=== PATIENT | female | born 1990 | race Caucasian/White ===

== ENCOUNTER 2023-04-27 16:55 | Emergency (ER) | payer OTHER, SELFPAY ==
--- NOTE | 2023-04-27 17:05 | ECG_ITS ---
Measurements Intervals [place] Rate: 85 P: 52 TN: 156 QRS: -10 QRSD: 117 T: 25 QT: 369 QTc: 439 Interpretive Statements SINUS RHYTHM INCOMPLETE RIGHT BUNDLE BRANCH BLOCK BORDERLINE ECG NO PREVIOUS ECG AVAILABLE FOR COMPARISON Electronically Signed On 04-27-2023 18:42:35 CDT by Conner Clements D.O.
[2023-04-27 17:14] VITALS: BP 145/109; PULSE 99; RESP 14; TEMP 36.9; O2SAT 99
[2023-04-27 17:15] LABS: Glucose Point of Care 82 mg/dl (65-105)
[2023-04-27] MEDS: ONDANSETRON HCL ODT 4 MG TABLET PO (17:24)
[2023-04-27 17:25] LABS: Basophils Absolute Auto 0.03 K/mm3 (0.00-0.10); Basophils Percent Auto 0.3 % (0.0-1.0); Eosinophils Absolute Auto 0.22 K/mm3 (0.02-0.50); Eosinophils Percent Auto 2.5 % (1.0-6.0); Hematocrit 34.5 % (35.0-49.0); Hemoglobin 11.3 g/dL (12.0-15.0); Immature Granulocyte Absolute 0.03 K/mm3 (0.00-0.00); Immature Granulocyte Percent A 0.3 % (0.0-0.0); Lymphocytes Absolute Auto 3.89 K/mm3 (1.10-4.50); Lymphocytes Percent Auto 43.6 % (18.0-42.0); Mean Corpuscular HGB Conc 32.8 g/dL (32.0-36.0); Mean Corpuscular Hemoglobin 28.3 pg (27.0-31.0); Mean Corpuscular Volume 86.5 fL (78.0-102.0); Mean Platelet Volume 8.8 fl (9.2-11.8); Monocytes Absolute Auto 0.64 K/mm3 (0.10-0.90); Monocytes Percent Auto 7.2 % (2.0-11.0); Neutrophils Absolute Auto 4.1 K/mm3 (1.7-7.2); Neutrophils Percent Auto 46.1 % (50.0-70.0); Platelet Count Result 270 K/mm3 (150-420); Red Blood Count 3.99 M/mm3 (4.20-5.40); Red Cell Distribution Width 12.1 % (11.6-14.4); White Blood Count 8.9 K/mm3 (4.8-10.8)
[2023-04-27 17:39] LABS: Alanine Aminotransferase 22 U/L (14-59); Albumin Level 3.5 g/dL (3.4-5.0); Alkaline Phosphatase 46 U/L (46-116); Anion Gap 12 mmol/L (8-16); Aspartate Amino Transferase 14 U/L (15-37); Bilirubin,Total 0.1 mg/dL (0.00-1.00); Blood Urea Nitrogen 14 mg/dL (7-18); Calcium 9.1 mg/dL (8.5-10.1); Carbon Dioxide 25 mmol/L (21-32); Chloride 102 mmol/L (98-108); Estimated Glomerular Filt Rate > 60; Glucose 93 mg/dL (70-99); Osmolality Calculated 288 mOsm/kg (285-295); Potassium 3.4 mmol/L (3.5-5.1); Sodium 139 mmol/L (136-145); Total Protein 7.2 g/dL (6.4-8.2)
--- NOTE | 2023-04-27 17:48 | ED.DIZZY ---
HPI - Dizziness General Chief Complaint: Dizziness Stated Complaint: nausea; faint Time Seen by Provider: 04/27/23 17:04 Source: patient and family Mode of arrival: ambulatory Limitations: no limitations History of Present Illness HPI Narrative: this is a 32-year-old female with no significant past medical history presents with dizziness and a sensation that the room is spinning with nausea, with no fever chills no chest pain no abdominal pain no shortness of breath no flank pain no dysuria or hematuria. Patient states that she does have some sinus congestion for the last couple of days, with no diarrhea or constipation. MD elicited complaint: dizziness and lightheadedness Onset (ago): hour(s) Timing: sudden onset Severity: mild Description: sense of movement, room spinning and lightheadedness Related Data Allergies Allergy/AdvReac Type Severity Reaction Status Date / Time No Known Allergies Allergy Unverified 04/27/23 17:11 Review of Systems Review of Systems: All systems reviewed & are unremarkable except as noted in HPI and below PMFSH Past Medical History Medical History Patient denies medical problems Exam Const: General: healthy appearing Nutritional Appearance: well nourished Orientation/consciousness: patient oriented x3 Limitations: no limitations HENMT: Head: normal to inspection Other: bilateral ear dullness with some maxillary sinus tenderness with palpation Eyes: Pupils: Equal, round and reactive pupils present EOM: EOMs intact bilaterally Neck: Neck: normal visual inspection Chest: Chest palpation & inspection: normal inspection of the chest Resp: Effort & Inspection: normal respiratory effort Auscultation: clear to auscultation bilaterally Cardio: Rate: regular rate Rhythm: regular rhythm GI: GI Palp: Yes Soft to palpation Auscultation: normal bowel sounds : General: Yes bladder normal to palpation Back/Spine/Pelvis: Back: no CVA tenderness Skin: Rashes: no rashes Neuro: General: patient oriented x3, moves all extremities and no meningeal signs Extrem: General: normal to inspection Psych: Mental Status: mental status grossly normal Affect: normal affect Course Course Emergency Course: patient had EKG performed which shows that she has an incomplete right bundle branch block, labs performed showed that she has a potassium level of 3.4. Potassium level being decreased will administer a dose of oral potassium here in the emergency department. Advised patient to tack picker prescriptions for potassium, and follow up with primary care physician to evaluate the incomplete right bundle branch block. Patient with sinus congestion for the last couple of days afebrile advised Claritin and Flonase [id number]. Vital Signs Vital signs: Vital Signs Temperature 36.9 C 04/27/23 17:14 Pulse Rate 99 04/27/23 17:14 Respiratory Rate 14 04/27/23 17:14 Blood Pressure 145/109 H 04/27/23 17:14 Pulse Oximetry 99 04/27/23 17:14 Oxygen Delivery Room Air 04/27/23 17:14 Temperature 36.9 C 04/27/23 17:14 Pulse Rate 99 04/27/23 17:14 Respiratory Rate 14 04/27/23 17:14 Blood Pressure 145/109 H 04/27/23 17:14 Pulse Oximetry 99 04/27/23 17:14 Oxygen Delivery Room Air 04/27/23 17:14 MDM - Dizziness Lab Data 04/27/23 17:20 04/27/23 17:20 Labs: Lab Results 04/27/23 04/27/23 Range/Units 17:11 17:20 WBC 8.9 (4.8-10.8) K/mm3 RBC 3.99 L (4.20-5.40) M/mm3 Hgb 11.3 L (12.0-15.0) g/dL Hct 34.5 L (35.0-49.0) % MCV 86.5 (78.0-102.0) fL MCH 28.3 (27.0-31.0) pg MCHC 32.8 (32.0-36.0) g/dL RDW 12.1 (11.6-14.4) % Plt Count 270 (150-420) K/mm3 MPV 8.8 L (9.2-11.8) fl Immature Gran % (Auto) 0.3 H (0.0-0.0) % Neut % (Auto) 46.1 L (50.0-70.0) % Lymph % (Auto) 43.6 H (18.0-42.0) % [place] % (Auto) 7.2 (2.0-11
[2023-04-27] MEDS: POTASSIUM BICARBONATE 25 MEQ TABEF 50 MEQ PO (17:50)
[2023-04-27 18:05] VITALS: BP 129/90; PULSE 87; RESP 12; TEMP 36.9; O2SAT 99
== END 2023-04-27 18:08 | disposition home or self-care (01) ==
PROVIDERS: Emergency Provider Emergency Medicine
DX: R42 Dizziness and giddiness (principal); I45.10 Unspecified right bundle-branch block; E87.6 Hypokalemia
CPT/HCPCS: 36415; 80053; 82948; 85025; 93005; 99283; A9270

== ENCOUNTER 2024-06-03 07:00 | Outpatient (NON) | payer OTHER, SELFPAY | END 2024-06-03 07:01 | disposition home or self-care (01) | LOC: ANHLAB 06-04 09:38 | PROVIDERS: Visit Provider Surgery Plastic and Reconstructive Surgery | DX: T85.43XA Leakage of breast prosthesis and implant, initial encounter (principal) | CPT/HCPCS: 88304 ==

== ENCOUNTER 2024-06-03 08:17 | Day surgery (SDC) | payer OTHER, SELFPAY ==
[2024-05-15 10:00] VITALS: BMI 28.3
[2024-06-03] VITALS (8 sets, daily range): BP systolic 113–149; BP diastolic 75–103; PULSE 83–108; RESP 12–18; TEMP 36.4–37.4; O2SAT 96–100; BMI 28.4
--- NOTE | 2024-06-03 08:35 | SUR.PREOP ---
FEMALE STAFF IN ROOM WHILE DR REES MARKED PT. MOTHER ALSO IN ROOM
--- NOTE | 2024-06-03 08:36 | SUR.PREOP ---
ERROR. ABOVE NOTE REGARDING MARKING PT DID NOT HAPPEN AT THIS TIME. CHARTED ON WRONG PT.
[2024-06-03] MEDS: LACTATED RINGERS 1,000 ML 30 ML IV CONT ×2 (09:55→12:23)
--- NOTE | 2024-06-03 10:24 | SUR.PREOP ---
FEMALE STAFF IN ROOM WHILE DR REES MARKED PT. PT'S SPOUSE IN ROOM ALSO
--- NOTE | 2024-06-03 10:39 | WPDHPUPDATE1 ---
History and Physical Update Update Date/Time: 06/03/24 10:39 History and Physical has been reviewed, including an updated exam of the patient. There are NO changes in the patient's condition. Risks, benefits, and alternatives have been discussed and questions answered. Patient agrees to proceed with procedure.
--- NOTE | 2024-06-03 10:41 | WPDANESEPPF ---
Anes - Initial Pre Proc Eval Procedure: Operation Date: 06/03/24 10:45 Proposed Procedures p Bilateral Breast Implant Exchange - Gurdeep De Leon MD Date/Time: 06/03/24 10:41 Surgeon: Gurdeep De Leon MD Pre Op Diagnosis: HX Breast Augmentation, LT Breast Implant Rupture Patient Data Age: 34 Gender: F Height: 1.47 m Weight: 61.7 kg Last Vital Signs Temp 37.4 C 06/03/24 09:40 Pulse 85 06/03/24 09:40 Resp 18 06/03/24 09:40 BP 149/103 H 06/03/24 09:40 Pulse Ox 100 06/03/24 09:40 O2 Del Method Room Air 06/03/24 09:40 Allergies Allergy/AdvReac Type Severity Reaction Status Date / Time cefazolin (From [facility]) Allergy Intermediate Hives Verified 06/03/24 09:38 Home Medications ?Medication ?Instructions ?Recorded ?Confirmed ?Type No Home Medications 05/15/24 05/15/24 History Patient hx anesthesia problems: none Family hx anesthesia problems: none Results Review: All pre-operative results and documents have been reviewed as part of the pre-operative evaluation. [facility] Past Medical History Medical History Patient denies medical problems Social History Social History Smoking status: Former smoker Tobacco type: cigarettes Second hand tobacco smoke exposure: Yes Alcohol intake: current Alcohol use details: 3 per month Substance use type: does not use Living arrangements: with family Spiritual care concerns: No Anes - Eval Final PreProcedure Day of Procedure 06/03/24 10:41 Patient weight: overweight Heart: regular rate and rhythm Lungs: clear to auscultation Airway: Mallampati scale class II Neurological: alert and oriented Last oral intake: >/= 8 hours ASA classification: II Emergent: no Anesthetic plan: proceed Anesthesia type and monitoring: general LMA and standard monitoring Results Review: All pre-operative results and documents have been reviewed as part of the pre-operative evaluation. Informed Consent: The patient's anesthetic plan and its attendant risks and benefits were discussed with the patient/family/POA. Questions were solicited and answers provided to the satisfaction of the patient/family/POA.
[2024-06-03] MEDS: SCOPOLAMINE 1 MG PATCH 1.5 PATCH TRANSDERM (10:45)
[2024-06-03] MEDS: CLINDAMYCIN 900 MG/NS 50 ML 900 MG/50 ML PIGGYBACK 50 MG IVPB (11:14)
[2024-06-03] MEDS: LIDOCAINE 1% LOCAL INJ 10 ML VIAL 30 ML INFILTRATE (11:20)
[2024-06-03] MEDS: NACL 0.9% IRRIG POUR BOTTLE 900 ML, GENTAMICIN SULFATE INJ 160 MG, CLINDAMYCIN PHOS INJ... IRRIGATION (12:00)
--- NOTE | 2024-06-03 12:08 | W.PM.PROC2 ---
Procedure Note - Detailed Date of Procedure 06/03/24 Pre-op Diagnosis HX Breast Augmentation, LT Breast Implant Rupture Post-op Diagnosis Same Procedure Performed Bilateral breast implant exchange Surgeon Gurdeep De Leon MD Anesthesia General Indications Suspected left rupture and bilateral textured implants patient has decided to proceed with bilateral implant exchange. Current implant information unavailable. Findings Previous implants: Right breast implant [place] 400cc intact Left breast implant [place] 350cc grossly ruptured Replacement implants: Jarad Pelayo SoftTouch Right: REF# [id number] SN [id number] Left: REF# [id number] SN [id number] No worrisome features Description of Procedure Preoperatively the risks, benefits, alternatives were discussed in extensive detail. I wanted to be very realistic about the risks involved as well as expectations. I was clear about how we could actually make her worse. We do not have her current implant information available and she understands it's unlikely she will be exactly the same size. Answered all questions to satisfaction. Voiced a clear understanding. Consent obtained. She was taken the operating room placed supine on the operating room table. Anesthesia provided by anesthesiology and prepped and draped in a standard sterile fashion. Surgical time-out was taken. 1% lidocaine and 0.25% Marcaine with epinephrine was used to provide a field block. Tegaderm nipple subramanian were placed. Fifteen blade used to excise the previous IMF scars. Dissection was continued down until the capsules were identified and excised a significant portion of the capsule which was sent to pathology. Implants removed (findings as above). Changed gloves. I then copiously irrigated with 3 L of saline solution on TUR tubing. Verified strict hemostasis. Changed gloves. I then irrigated with Betadine containing solution. Based on preoperative estimates of implant size we did not have an exact match available. Implants utilized as above. Using a no-touch technique and a [place] funnel the implant was introduced into the pocket. This was closed with 2-0 PDS followed by 3-0 Monocryl and a running subcuticular 4-0 Monocryl followed by tissue glue. Dressings were placed. She was woken taken to the PACU without difficulty. All instrument sponge counts were correct at the end of the case. Estimated Blood Loss 20 Drains No Packing No Pathology Yes (Bilateral capsules) Complications No immediate complications Condition Stable Disposition PACU
[2024-06-03] MEDS: BUPIVACAINE/EPINEPHRINE 0.25% 10 ML VIAL 30 ML INFILTRATE (12:11)
--- NOTE | 2024-06-03 12:24 | WPDANESPN ---
Anes - Prog Note Post-Op Date/Time: 06/03/24 12:24 Cardiovascular status: normal Respiratory status: normal Airway patency: baseline Mental status: baseline Post-Op hydration status: normal Vital Signs: Last Vital Signs Temp 37.4 C 06/03/24 09:40 Pulse 85 06/03/24 09:40 Resp 18 06/03/24 09:40 BP 149/103 H 06/03/24 09:40 Pulse Ox 100 06/03/24 09:40 O2 Del Method Room Air 06/03/24 09:40 Pain Score (VAS): 1 Patient Feedback: Patient satisfied with anesthetic care.
== END 2024-06-03 13:41 | disposition home or self-care (01) ==
PROVIDERS: Visit Provider Surgery Plastic and Reconstructive Surgery
PROC: (CPT 19342; principal; 2024-06-03 10:45)
DX: N65.1 Disproportion of reconstructed breast (principal)
CPT/HCPCS: 19342

== ENCOUNTER 2024-06-22 00:22 | Day surgery (SDC) | payer OTHER, SELFPAY ==
[2024-06-15 15:48] VITALS: BMI 28.3
--- NOTE | 2024-06-15 15:49 | PC.NURSE ---
Report to the Outpatient Waiting Room, entrance under the green pavilion located off [facility], at time _0730_ on date _[id number]_. Planned Procedure Time: _0930_.? Time changes happen often and if your time is changed the preop area will call you the afternoon before. - You and your visitor will be asked to self-screen and do not enter if you have any COVID symptoms. Please call surgeon if you need to reschedule. - A mask is optional within the hospital at this time. Patients may have clear liquids (water, carbonated beverages, clear teas, apple juice) until 3 hours prior to surgery with a maximum of 20 ounces. - No food from midnight until time of surgery and no smoking. This includes no chewing gum, candy or mints. Take only the following medications with a SIP of water on the morning of surgery: ___None DO NOT STOP ANY OF YOUR OTHER PRESCRIPTION MEDICATIONS PRIOR TO SURGERY EXCEPT THE FOLLOWING Medications to discontinue per physician ____None Date to take last dose Please no make-up, nail turkmen, hairspray, perfume, deodorant, or body powder the day of surgery.? No jewelry (including any body piercings) or valuables the day of surgery, leave them at home.? Please take a shower or bath the night before, or the morning of, surgery with an antibacterial soap.? Wear comfortable, loose fitting clothing.? - Jewelry must be removed prior to entering the operating room.? Rings and piercings that are not removed may be cut off. - The hospital will not accept responsibility for valuables.? - Please leave all valuables, including medications, at home the day of surgery. If you are going home after surgery, a licensed route sales delivery drivers supervisor must drive you home.? - NO public transportation without another adult if you receive anesthesia. - We recommend that an adult stay with you for 24 hours following discharge. - We also recommend that you do not drive, make important decision, drink alcoholic beverages, or take any drugs that were not prescribed by your health care provider for at least 24 hours after your discharge time. Follow any additional instructions given to you from your surgeon. Telephone instructions given to __Laxmi__and asked if any additional questions and then verbalized understanding. Patient advised to call surgeon office or pre surgery nurse liaison [phone] if any additional questions.
[2024-06-22] VITALS (7 sets, daily range): BP systolic 105–145; BP diastolic 67–96; PULSE 79–103; RESP 14–20; TEMP 35.6–36.6; O2SAT 98–100
[2024-06-22] MEDS: LACTATED RINGERS 1,000 ML 30 ML IV CONT (07:50)
--- NOTE | 2024-06-22 07:56 | WPDANESEPPF ---
Anes - Initial Pre Proc Eval Procedure: Operation Date: 06/22/24 09:30 Proposed Procedures p Left Breast Washout with Possible Breast Implant Exchange - Gurdeep De Leon MD Date/Time: 06/22/24 07:56 Surgeon: Gurdeep De Leon MD Pre Op Diagnosis: hx of breast augmentation Patient Data Age: 34 Gender: F Height: 1.47 m Weight: 62.5 kg Last Vital Signs Temp 36.6 C 06/22/24 07:50 Pulse 83 06/22/24 07:50 Resp 14 06/22/24 07:50 BP 136/96 H 06/22/24 07:50 Pulse Ox 99 06/22/24 07:50 O2 Del Method Room Air 06/22/24 07:50 Allergies Allergy/AdvReac Type Severity Reaction Status Date / Time cefazolin (From [facility]) Allergy Intermediate Hives Verified 06/22/24 07:58 Home Medications ?Medication ?Instructions ?Recorded ?Confirmed ?Type carisoprodol 350 mg tablet 350 mg PO .q8 PRN muscle pain 06/15/24 06/15/24 History Patient hx anesthesia problems: post op nausea/vomiting Family hx anesthesia problems: none Results Review: All pre-operative results and documents have been reviewed as part of the pre-operative evaluation. [facility] Past Medical History Medical History Patient denies medical problems Social History Social History Years smoked: 12 Smoking status: Former smoker Tobacco type: cigarettes Second hand tobacco smoke exposure: Yes Smoking end date: 06/15/16 Alcohol intake: current Alcohol use details: 3 per month Substance use type: does not use Living arrangements: with family Spiritual care concerns: No Anes - Eval Final PreProcedure Day of Procedure 06/22/24 07:56 Patient weight: overweight Heart: regular rate and rhythm Lungs: clear to auscultation Airway: Mallampati scale class II Neurological: alert and oriented Last oral intake: >/= 8 hours ASA classification: II Emergent: no Anesthetic plan: proceed Anesthesia type and monitoring: general LMA and standard monitoring Results Review: All pre-operative results and documents have been reviewed as part of the pre-operative evaluation. Informed Consent: The patient's anesthetic plan and its attendant risks and benefits were discussed with the patient/family/POA. Questions were solicited and answers provided to the satisfaction of the patient/family/POA.
[2024-06-22 07:58] LABS: BEDSIDEPREGUCG Negative (Negative)
[2024-06-22] MEDS: SCOPOLAMINE 1 MG PATCH 1 PATCH TRANSDERM (08:08)
--- NOTE | 2024-06-22 09:15 | WPDHPUPDATE1 ---
History and Physical Update Update Date/Time: 06/22/24 09:15 History and Physical has been reviewed, including an updated exam of the patient. There are NO changes in the patient's condition. Risks, benefits, and alternatives have been discussed and questions answered. Patient agrees to proceed with procedure.
--- NOTE | 2024-06-22 09:15 | W.PM.PROC2 ---
Procedure Note - Detailed Date of Procedure 06/22/24 Pre-op Diagnosis hx of breast augmentation Post-op Diagnosis Same Procedure Performed Left breast implant washout Surgeon Gurdeep De Leon MD Anesthesia General Indications History of bilateral breast implant exchange. Postoperatively developed a fluid collection left breast and elected to proceed with left breast washout, possible exchange. Findings Left breast approximally 100cc seroma Description of Procedure Preoperatively the risks, benefits, alternatives were discussed in extensive detail. I wanted to be very realistic about the risks involved as well as expectations. I was clear about how we could actually make her worse. Answered all questions to satisfaction. Voiced a clear understanding. Consent obtained. She was taken the operating room placed supine on the operating room table. Anesthesia provided by anesthesiology and prepped and draped in a standard sterile fashion. Surgical time-out was taken. 1% lidocaine and 0.25% Marcaine with epinephrine was used to provide a left field block. Tegaderm nipple subramanian were placed. Fifteen blade used to excise the previous left IMF scar. Dissection was continued down until the capsules were identified and entered (no evidence of implant injury). Immediately a seroma drained and we were unable to capture volume for accurate measurement or lab evaluation. Volume estimated as above around 100cc. At this point the implant was in good position and had a good match the with the contralateral implant. I then copiously irrigated with 2 L of saline solution on TUR tubing. Irrigated with Phase One and allowed to soak for more than 5 minutes. I then irrigated with Betadine containing solution. This was closed with 2-0 PDS followed by 3-0 Monocryl and a running subcuticular 4-0 Monocryl followed by tissue glue. Dressings were placed. She was woken taken to the PACU without difficulty. All instrument sponge counts were correct at the end of the case. Estimated Blood Loss 2 Drains No Packing No Pathology None sent Complications No immediate complications Condition Stable Disposition PACU
[2024-06-22] MEDS: CLINDAMYCIN 900 MG/D5W 50 ML 900 MG/50 ML PIGGYBACK 50 MG IVPB (09:28)
[2024-06-22] MEDS: LIDO 1%/EPINEPHRINE 1:100,000 20 ML VIAL INFILTRATE (09:59)
[2024-06-22] MEDS: NACL 0.9% IRRIG POUR BOTTLE 900 ML, GENTAMICIN SULFATE INJ 160 MG, CLINDAMYCIN PHOS INJ... IRRIGATION (10:01)
== END 2024-06-22 11:44 | disposition home or self-care (01) ==
PROVIDERS: Visit Provider Surgery Plastic and Reconstructive Surgery
PROC: (CPT 19342; principal; 2024-06-22 09:30)
DX: L76.32 Postprocedural hematoma of skin and subcutaneous tissue following other procedure (principal); N64.89 Other specified disorders of breast; Z79.891 Long term (current) use of opiate analgesic; Z87.891 Personal history of nicotine dependence; Z98.86 Personal history of breast implant removal; Z80.3 Family history of malignant neoplasm of breast
CPT/HCPCS: 10140; A9270; J1100; J1580; J2003; J2004; J2250; J2405; J2704; J3010; J7030; J7120

== ENCOUNTER 2025-06-16 17:20 | Emergency (ER) | payer OTHER, SELFPAY ==
[2025-06-16] VITALS (14 sets, daily range): BP systolic 140–152; BP diastolic 97–112; PULSE 84–103; RESP 13–21; TEMP 36.7; O2SAT 96–100
--- NOTE | ~2025-06-16 | XR_ITS ---
EXAMINATION: XR chest 2V 06/16/2025 17:37 INDICATION: Shortness of breath PROCEDURE: 2 view chest. COMPARISON: No prior studies for comparison. FINDINGS: The lungs are clear. The cardiomediastinal silhouette is within normal limits. There are no pleural effusions. There is no pneumothorax suspected. IMPRESSION: 1: NO ACUTE CARDIOPULMONARY DISEASE. Reviewed, dictated and finalized at location O. [employer]
--- NOTE | 2025-06-16 17:21 | ED.CHESTPAIN ---
HPI - Chest Pain General Chief Complaint: Shortness of Breath/Dyspnea Stated Complaint: cough Time Seen by Provider: 06/16/25 17:20 Source: patient Mode of arrival: ambulatory Limitations: no limitations History of Present Illness HPI narrative: Patient is a 35-year-old female with shortness of breath and chest pain this evening. She has known asthma. This feels like prior asthma inflammation flare. She used albuterol at home without success. MD complaint: chest pain and chest discomfort Pertinent past history: asthma Onset (ago): day(s) (One) Timing of current episode: constant, increasing and still present Prior episodes: Yes Onset: during rest Pain location: left chest and lateral Pain radiation: none Severity: moderate Pain scale (0-10): 4 Quality: sharp Relieving factors: nothing Exacerbating factors: exertion Context: other (Patient has chest pain/shortness of breath this evening and it feels like prior asthma flare) Associated symptoms: other (None) Treatment prior to arrival: other (Albuterol) Risk Factors Thoracic aortic dissection risk factors: none Related Data On Oral Contraceptives: No Home Medications ?Medication ?Instructions ?Recorded ?Confirmed ?Last Taken ?Type ipratropium 0.5 mg-albuterol 3 mg 3 ml inhalation Q6H PRN shortness 06/16/25 06/16/25 06/16/25 History (2.5 mg base)/3 mL nebulization of breath or wheezing soln Allergies Allergy/AdvReac Type Severity Reaction Status Date / Time cefazolin (From [facility]) Allergy Intermediate Hives Verified 06/16/25 17:36 Review of Systems Review of Systems: All systems reviewed & are unremarkable except as noted in HPI and below Constitutional: Constitutional: Reports no additional constitutional complaints Eyes: Eyes: Reports no additional eye complaints ENT: Reports system reviewed and no additional complaints, except as documented Cardiovascular: Cardiovascular: Reports no additional cardiovascular complaints Respiratory: Respiratory: Reports no additional respiratory complaints Gastrointestinal: Gastrointestinal: Reports no additional gastrointestinal complaints Genitourinary: Genitourinary: Reports no additional female genitourinary complaints Musculoskeletal: Musculoskeletal: Reports no additional musculoskeletal complaints Integumentary/Breasts: Skin/Breast: Reports system reviewed and no additional complaints, except as docu Neurologic: Reports system reviewed and no additional complaints, except as documented Psychiatric: Psychiatric: Reports no additional psychiatric complaints Endocrine: Endocrine: Reports no additional endocrine complaints Hematologic/Lymphatic: Hematologic/Lymphatic: Reports no additional hematologic/lymphatic complaints Allergic/Immunologic: Allergic/Immunologic: Reports no additional allergic/immunologic complaints [facility] Past Medical History Medical History Patient denies medical problems Social History Social History Years smoked: 12 Smoking status: Former smoker Tobacco type: cigarettes Second hand tobacco smoke exposure: Yes Smoking end date: 06/15/16 Alcohol intake: current Alcohol use details: 3 per month Substance use type: does not use Living arrangements: with family Spiritual care concerns: No Exam Const: General: healthy appearing Nutritional Appearance: well nourished Orientation/consciousness: patient oriented x3 Limitations: no limitations HENMT: Head: normal to inspection Ears: external ears normal Face/Nose/Sinus: Normal external nose present Face and sinus: normal facial exam Mouth: Yes Normal oral and palatal mucosa present and Yes dry mucous membranes Teeth and gingiva: dentition normal Throat: posterior oropharynx normal and uvula midline Eyes: Conjunctivae: conjunctivae normal Pupils: Equal, round and reactive pupils present EOM: EOMs intact bilaterally Direct Ophthalmoscopy: no photophobia Neck: Neck: normal visual inspection Chest: Chest palpation & inspection: normal inspection of the chest Resp: Effort & Inspection: normal respiratory effort and not labored Auscultation: clear to auscultation bilaterally, no crackles and diminished lung sounds Cardio: Rate: regular rate Rhythm: regular rhythm Heart sounds: no murmurs GI: Inspection: non-distended GI Palp: Yes Soft to palpation and No Tenderness to palpation present (GI) Auscultation: normal bowel sounds : General: Yes bladder normal to palpation Back/Spine/Pelvis: Back: no CVA tenderness Skin: General skin exam: normal color Rashes: no rashes Wounds: no wounds Neuro: General: patient oriented x3, moves all extremities and no meningeal signs Extrem: General: normal to inspection, no clubbing, cyanosis or edema and no pedal edema Psych: Mental Status: mental status grossly normal Affect: normal affect Attitude: cooperative Course Vital Signs Vital signs: Vital Signs Pulse Rate 97 06/16/25 17:20 Pulse Oximetry 96 06/16/25 17:20 Oxygen Delivery Room Air 06/16/25 17:20 Temperature 36.7 C 06/16/25 17:23 Pulse Rate 93 06/16/25 18:46 Respiratory Rate 14 06/16/25 18:46 Blood Pressure 140/97 H 06/16/25 18:46 Pulse Oximetry 97 06/16/25 18:46 Oxygen Delivery Room Air 06/16/25 18:46 MDM MDM Narrative Medical decision making narrative: Patient is a 35-year-old female with shortness of breath/chest pain this evening. Albuterol updraft. Solu-Medrol IM. Chest x-ray. Differential Diagnosis Differential Diagnosis: Asthma exacerbation, COPD Imaging Data Attestation: I personally reviewed and interpreted this imaging study as follows: Radiologist's impression: ITS Impressions Chest X-Ray 06/16/25 17:45 IMPRESSION: 1: NO ACUTE CARDIOPULMONARY DISEASE. ECG Data EKG #1: Attestation: I personally reviewed and interpreted this ECG as follows: ECG completion date: 06/16/25 ECG completion time: 20:24 tachycardia, sinus rhythm, no ectopy, non-specific ST changes, normal QRS, normal QT and left axis Discharge Plan Discharge Clinical Impression: Asthma exacerbation Qualifiers: Asthma severity: moderate Asthma persistence: unspecified Qualified Code(s): J45.901 - Unspecified asthma with (acute) exacerbation Patient Disposition: Home Condition: Stable Instructions: Asthma (ED) Patient Language: Faroese Prescriptions: New methylprednisolone [Medrol (Edilberto)] 4 mg tablets,dose pack See Rx Instructions .ROUTE .COMPLEX Qty: 21 0RF Rx Instructions: orally per package directions No Action ipratropium-albuterol 0.5 mg-3 mg(2.5 mg base)/3 mL solution for nebulization 3 ml INHALATION Q6H PRN (Reason: shortness of breath or wheezing) Follow-up/Referrals: UNKNOWN,DOCTOR [Non-Staff] Time of Disposition: 18:49
--- NOTE | 2025-06-16 17:25 | ECG_ITS ---
Test Date: 2025-06-16 17:30:06 Measurements Intervals [place] Rate: 108 P: 58 CT: 162 QRS: -24 QRSD: 114 T: 22 QT: 348 QTc: 467 Interpretive Statements SINUS TACHYCARDIA INCOMPLETE RIGHT BUNDLE BRANCH BLOCK BASELINE ARTIFACT I, II, III, AVR, AVL, AVF ABNORMAL ECG No previous ECG available for comparison Electronically Signed On 06-16-2025 19:01:52 [facility] TECH by Conner Clements D.O.
[2025-06-16] MEDS: ALBUTEROL SULFATE NEB 2.5 MG/3 ML INH INHALATION (18:10)
== END 2025-06-16 19:00 | disposition home or self-care (01) ==
PROVIDERS: Emergency Provider Emergency Medicine; PCP Nurse Practitioner Family
DX: J45.901 Unspecified asthma with (acute) exacerbation (principal); Z87.891 Personal history of nicotine dependence
CPT/HCPCS: 71046; 93005; 94640; 96374; 99284; J2919